=== PATIENT | female | born 1965 | race Caucasian/White ===

== ENCOUNTER → 2017-07-22 | Outpatient (CLI) | payer OTHER ==
--- NOTE | ~2017-07-22 | ENPV ---
Vascular Lower Extremities Venous Insufficiency and Lower Extremities DVT Study Procedure Demographics Patient Name FE BIANCHI Date of Study 07/22/2017 Patient Number [id number] Gender Female Date of 1965 Age 51 Visit Number [id number] Height Accession Number [id number] Weight Room Number BSA BMI Referring Interpreting Rubén Bell MD Physician Physician Physician Martha Valentin Head Of Precision Targeting Physician Reggie SULLIVAN Director Of [facility] Renee Doran T, [facility] Conclusions Summary There is superficial venous incompetence involving the great saphenous vein(s) in the right leg at the distal thigh and the small saphenous vein in the proximal calf. Procedure Type of Study: Veins:Lower Extremities Venous Insufficiency, Venous Duplex Pre Intervention NH, Lower Extremities DVT Study, Venous Duplex Lower Extremity Bilateral. Indications for Study:Swelling and Pain. Appropriate Use Criteria:6 Patient Status:Routine. Study Location:Vascular Lab. Technical Quality:Good visualization. Velocities are measured in cm/s ; Diameters are measured in cm Right Doppler Measurements and Mapping + +------+------+ +-------+ + !Location !Signal!Reflux!Reflux (sec)!AP Diam!Trans Diam ! + +------+------+ +-------+ + !Sapheno Femoral Junction !Phasic!No !0 !0.51 !0.52 ! + +------+------+ +-------+ + !GSV High Thigh !Phasic!No !0 !0.4 !0.4 ! + +------+------+ +-------+ + !GSV Mid Thigh !Phasic!No !0 !0.36 !0.32 ! + +------+------+ +-------+ + !GSV Low Thigh !Phasic!Yes !3.4 !0.29 !0.29 ! + +------+------+ +-------+ + !GSV Knee !Phasic!No !0 !0.25 !0.25 ! + +------+------+ +-------+ + !GSV High Calf !Phasic!No !0 !0.36 !0.39 ! + +------+------+ +-------+ + !GSV Mid Calf !Phasic!No !0 !0.24 !0.32 ! + +------+------+ +-------+ + !GSV Low Calf !Phasic!No !0 !0.25 !0.32 ! + +------+------+ +-------+ + !Sapheno Popliteal Junction !Phasic!No !0 !0.35 !4 ! + +------+------+ +-------+ + !SSV High Calf !Phasic!Yes !4.4 !0.26 !0.23 ! + +------+------+ +-------+ + !SSV Mid Calf !Phasic!No !0 !0.28 !0.31 ! + +------+------+ +-------+ + !SSV Low Calf !Phasic!No !0 !0.32 !0.36 ! + +------+------+ +-------+ + Left Doppler Measurements and Mapping + +------+------+ +-------+ + !Location !Signal!Reflux!Reflux (sec)!AP Diam!Trans Diam ! + +------+------+ +-------+ + !Sapheno Femoral Junction !Phasic!No !0 !0.34 !0.4 ! + +------+------+ +-------+ + !GSV High Thigh !Phasic!No !0 !0.32 !0.44 ! + +------+------+ +-------+ + !GSV Mid Thigh !Phasic!No !0 !0.39 !0.34 ! + +------+------+ +-------+ + !GSV Low Thigh !Phasic!No !0 !0.37 !0.38 ! + +------+------+ +-------+ + !GSV Knee !Phasic!No !0 !0.37 !0.42 ! + +------+------+ +-------+ + !GSV High Calf !Phasic!No !0 !0.32 !0.38 ! + +------+------+ +-------+ + !GSV Mid Calf !Phasic!Yes !0.79 !0.25 !0.36 ! + +------+------+ +-------+ + !GSV Low Calf !Phasic!No !0 !0.28 !0.35 ! + +------+------+ +-------+ + !Sapheno Popliteal Junction !Phasic!No !0 !0.3 !0.36 ! + +------+------+ +-------+ + !SSV High Calf !Phasic!No !0 !0.28 !0.24 ! + +------+------+ +-------+ + !SSV Mid Calf !Phasic!No !0 !0.29 !0.27 ! + +------+------+ +-------+ + !SSV Low Calf !Phasic!No !0 !0.26 !0.29 ! + +------+------+ +-------+ + Velocities are measured in cm/s ; Diameters are measured in cm Right Lower Extremities DVT Study Measurements Right 2D and Doppler Measurements + + + + +------+------+ + !Location !Visualized!Compressibility!Thrombosis!Signal!Reflux!Reflux ! ! ! ! ! ! ! !(sec) ! + + + + +------+------+ + !GSV Thigh !Yes !Yes !None !Phasic!No ! ! + + + + +------+------+ + !Common !Yes !Yes !None !Phasic!Yes ! ! !Femoral ! ! ! ! ! ! ! + + + + +------+------+ + !Prox !Yes !Yes !None !Phasic!No ! ! !Femoral ! ! ! ! ! ! ! + + + + +------+------+ + !Mid Femoral!Yes !Yes !None !Phasic!No ! ! + + + + +------+------+ + !Dist !Yes !Yes !None !Phasic!No ! ! !Femoral ! ! ! ! ! ! ! + + + + +------+------+ + !Popliteal !Yes !Yes !None !Phasic!No ! ! + + + + +------+------+ + !PTV !Yes !Yes !None !Phasic!No ! ! + + + + +------+------+ + !Peroneal !Yes !Yes !None !Phasic!No ! ! + + + + +------+------+ + Left Lower Extremities DVT Study Measurements Left 2D and Doppler Measurements + + + + +------+------+ + !Location !Visualized!Compressibility!Thrombosis!Signal!Reflux!Reflux ! ! ! ! ! ! ! !(sec) ! + + + + +------+------+ + !GSV Thigh !Yes !Yes !None !Phasic!No ! ! + + + + +------+------+ + !Common !Yes !Yes !None !Phasic!No ! ! !Femoral ! ! ! ! ! ! ! + + + + +------+------+ + !Prox !Yes !Yes !None !Phasic!No ! ! !Femoral ! ! ! ! ! ! ! + + + + +------+------+ + !Mid Femoral!Yes !Yes !None !Phasic!No ! ! + + + + +------+------+ + !Dist !Yes !Yes !None !Phasic!No ! ! !Femoral ! ! ! ! ! ! ! + + + + +------+------+ + !Popliteal !Yes !Yes !None !Phasic!No ! ! + + + + +------+------+ + !PTV !Yes !Yes !None !Phasic!No ! ! + + + + +------+------+ + !Peroneal !Yes !Yes !None !Phasic!No ! ! + + + + +------+------+ + Signature dtt: ERIC TORRES dtd: 07/22/17 1254 Physician Self Gemini
== END | disposition disaster alternative care site (69) ==
LOC: GCAR 12:47
DX: R60.0 Localized edema (principal)